=== PATIENT | male | born 1995 | race Caucasian/White ===

== ENCOUNTER → 2021-12-25 08:51 | Outpatient (CLI) | payer BC, OTHER, SELFPAY ==
--- NOTE | ~2021-12-25 | US_ITS ---
US abdomen limited INDICATION: Generalized abdominal pain PROCEDURE: Realtime right upper abdominal ultrasound. COMPARISON: No prior studies for comparison. FINDINGS: The pancreas is normal without focal mass or pancreatic ductal dilation. Liver echotexture is normal without focal mass or intrahepatic biliary dilatation. There is normal directional flow i n the portal vein. The gallbladder is normal without stones, gallbladder wall thickening or pericholecystic fluid. Comm on bile duct measures 4 mm. No sonographic Beavers's sign. IMPRESSION: 1: Normal limited abdominal ultrasound. Reviewed, dictated and finalized at location B.
== END ==
PROVIDERS: PCP Family Medicine; Visit Provider Family Medicine
DX: R10.9 Unspecified abdominal pain (principal)
CPT/HCPCS: 76705

== ENCOUNTER 2021-12-31 00:54 | Day surgery (SDC) | payer BC, OTHER, SELFPAY ==
[2021-12-21 13:09] VITALS: BMI 28.8
--- NOTE | 2021-12-29 12:28 | P.PNAN_ITS ---
Anes - Initial Pre Proc Eval Procedure: Operation Date: 12/31/21 12:30 Proposed Procedures p Esophagogastroduodenoscopy - Anthony Dover MD Date/Time: 12/29/21 12:28 Surgeon: Anthony Dover MD Pre Op Diagnosis: abdominal pain, nausea Patient Data Age: 26 Gender: M Height: 1.78 m Weight: 91 kg Allergies Allergy/AdvReac Type Severity Reaction Status Date / Time No Known Allergies Allergy Verified 12/31/21 11:19 Home Medications Medication Instructions Recorded Confirmed Type esomeprazole magnesium 20 mg 20 mg PO DAILY 12/17/21 12/21/21 History capsule,delayed release Patient hx anesthesia problems: none Family hx anesthesia problems: none Results Review: All pre-operative results and documents have been reviewed as part of the pre-operative evaluation. [facility] Past Medical History Medical History (Updated 12/29/21 @ 12:29 by Home Torres DO) Abdominal pain GERD (gastroesophageal reflux disease) IBS (irritable bowel syndrome) Overweight (BMI 25.0-29.9) Surgical History Surgical History (Updated 12/29/21 @ 12:29 by Home Torres DO) History of tonsillectomy Family History Family History Father Alcoholism Malignant neoplasm of prostate Mother Depression Social History Social History (Updated 12/17/21 @ 14:15 by Divina Portillo MA) Smoking status: Never smoker Alcohol intake: unknown Substance use: never Substance use type: does not use Living arrangements: with family Spiritual care concerns: No Anes - Eval Final PreProcedure Day of Procedure 12/29/21 12:28 Patient weight: overweight Heart: regular rate and rhythm Lungs: clear to auscultation and normal air movement Airway: Mallampati scale class II Neurological: alert and oriented Last oral intake: >/= 8 hours ASA classification: II Emergent: no Anesthetic plan: proceed Anesthesia type and monitoring: general GIVS and standard monitoring Results Review: All pre-operative results and documents have been reviewed as part of the pre-operative evaluation. Informed Consent: The patient's anesthetic plan and its attendant risks and benefits were discussed with the patient/family/POA. Questions were solicited and answers provided to the satisfaction of the patient/family/POA.
--- NOTE | 2021-12-30 10:45 | PM.HPGS ---
History of Present Illness History of Present Illness Consent: Risks, benefits, and alternatives have been discussed and questions answered. Patient agrees to proceed with procedure. Chief complaint: abdominal pain, nausea Narrative: Thee Adams is a 26 year old male who complains of nausea and mid-upper abdominal pain since September. Reports long hx of GI issues off and on for years. Symptoms seem to be worse with stress. This past September, 2 days prior to starting a new job, he developed severe mid-upper abdominal and nausea with associated diarrhea. Abdominal pain is stabbing and burning in nature. He denies any radiation of pain; states severe pain will last 2-3 days and then improve but never completely goes away. He becomes extremely nauseated but no vomiting. At times with associated loose stools (stools a 4-6 on BSS), with urgency.Initially he would have nausea all day long. Lately it occurs primarily towards evening, especially when he is lying down. Review of Systems Review of Systems: All systems reviewed & are unremarkable except as noted in HPI and below PMFSH Past Medical History Medical History Abdominal pain GERD (gastroesophageal reflux disease) IBS (irritable bowel syndrome) Overweight (BMI 25.0-29.9) Surgical History Surgical History History of tonsillectomy Family History Family History Father Alcoholism Malignant neoplasm of prostate Mother Depression Social History Social History Smoking status: Never smoker Alcohol intake: unknown Substance use: never Substance use type: does not use Living arrangements: with family Spiritual care concerns: No Meds Home Medications and Allergies Home Medications Medication Instructions Recorded Confirmed Type esomeprazole magnesium 20 mg 20 mg PO DAILY 12/17/21 12/21/21 History capsule,delayed release Allergies Allergy/AdvReac Type Severity Reaction Status Date / Time No Known Allergies Allergy Verified 12/31/21 11:19 Exam Const: General: alert Orientation/consciousness: patient oriented x3 Resp: Auscultation: clear to auscultation bilaterally Cardio: Rhythm: regular rhythm GI: GI Palp: Yes Soft to palpation and No Tenderness to palpation present (GI) Neuro: General: patient oriented x3 Assessment and Plan Assessment and plan (1) Abdominal pain: Code(s): R10.9 - Unspecified abdominal pain Status: Acute Assessment and Plan: EGD with possible biopsy or dilatation or cautery.
[2021-12-31 11:20] VITALS: BP 129/73; PULSE 69; RESP 20; TEMP 36.6; O2SAT 100
[2021-12-31] MEDS: LACTATED RINGERS 1,000 ML 150 ML IV CONT (11:28)
[2021-12-31 12:52] VITALS: BP 109/62; PULSE 60; RESP 18; O2SAT 97
[2021-12-31 13:02] VITALS: BP 111/73; PULSE 61; RESP 18; O2SAT 100
[2021-12-31 13:12] VITALS: BP 120/79; PULSE 61; RESP 21; O2SAT 100
== END 2021-12-31 13:20 | disposition home or self-care (01) ==
PROVIDERS: PCP Family Medicine; Visit Provider Internal Medicine Gastroenterology
PROC: 0DJ08ZZ Inspection of Upper Intestinal Tract, Via Natural or Artificial Opening Endoscopic (ICD-10-PCS; CPT 43235; principal; 2021-12-31 12:30)
DX: R11.0 Nausea (principal); R10.13 Epigastric pain; K21.9 Gastro-esophageal reflux disease without esophagitis; K58.9 Irritable bowel syndrome, unspecified
CPT/HCPCS: 43239; 87081; 88305; J2704; J7120